=== PATIENT | female | born 1990 | race Caucasian/White ===

== ENCOUNTER 2025-02-03 23:25 | Emergency (ER) | payer OTHER, SELFPAY ==
--- NOTE | ~2025-02-03 | CT_ITS ---
History: Lower back pain PROCEDURE: CT lumbar spine without intravenous contrast. COMPARISON: None TECHNIQUE: Multiple contiguous axial images of the lumbar spine were performed without the administration of int ravenous contrast. DLP: 1402 mGy-cm FINDINGS: Preservation of the normal lordotic curvature of the lumbar spine is identified, possibly muscular in origin. No acute compression fractures are present. No soft tissue abnormality is noted. At the level of L2/L3: Trace left paracentral disc protrusion without significant mass effect on eith er the spinal canal or bilateral neural foramen. No additional significant degenerative disc disease is appreciated. Impression: Preservation of the normal lordotic curvature of the lumbar spine, likely muscular in origin. No acute compression fracture. Trace degenerative disease. Reviewed, dictated and finalized at location A. Impression: Preservation of the normal lordotic curvature of the lumbar spine, likely muscu lar in origin. No acute compression fracture. Trace degenerative disease.
[2025-02-03 23:37] VITALS: BP 149/94; PULSE 89; RESP 16; TEMP 36.4; O2SAT 98
[2025-02-03 23:47] LABS: BEDSIDEPREGUCG Negative (Negative)
[2025-02-03 23:47] LABS: Add Urine Microscopic? NO; Appearance Urine Clear (Clear); Glucose Urine UA Negative (Negative); Leukocyte Esterase Ur Negative LEU/UL (Negative); Nitrate Urine Negative (Negative); Specific Grav Ur 1.016 (1.001-1.035)
--- NOTE | 2025-02-04 00:07 | ECG_ITS ---
Test Date: 2025-02-04 00:32:22 Measurements Intervals [place] Rate: 80 P: 46 NH: 171 QRS: 29 QRSD: 83 T: 33 QT: 381 QTc: 440 Interpretive Statements SINUS RHYTHM No previous ECG available for comparison Electronically Signed On 02-04-2025 14:00:52 CDT by Alexandr Aburto M.D.
--- NOTE | 2025-02-04 00:08 | ED_ITS ---
HPI - Back Pain/Injury General Chief Complaint: Back Pain/Injury Stated Complaint: back pain Time Seen by Provider: 02/03/25 23:41 Source: patient Mode of arrival: ambulatory Limitations: no limitations History of Present Illness HPI Narrative: This is a 35-year-old female that presents to the emergency department for lower back pain. Reports the pain feels like a spasm. She has been taking [id number] anti-inflammatories with little relief. Pain is worse with movement and relieved with rest. She also reports mild dysuria. No recent injuries. She additionally endorses that she has been having some heartburn lately. Denies fevers, vomiting, hematuria. Related Data Allergies Allergy/AdvReac Type Severity Reaction Status Date / Time morphine Allergy Itching Verified 02/03/25 23:39 Review of Systems 2 Review of Systems: All systems reviewed & are unremarkable except as noted in HPI and below PMFSH Past Medical History Medical History (Updated 02/04/25 @ 01:47 by Lizbeth Nathan PA-C) ADHD Social History Social History (Updated 02/04/25 @ 00:09 by Lizbeth Nathan PA-C) Smoking status: Current every day smoker Exam 2 Narrative: GENERAL: Well-appearing, well-nourished, and in no acute distress. HEAD: Normocephalic, atraumatic. EYES: EOMI. CHEST: Clear to auscultation. No respiratory distress. No wheezes rales or rhonchi HEART: Regular rate and rhythm. No murmur heard. Normal peripheral pulses. EXTREMITIES: Normal range of motion. No edema. SKIN: Warm, dry, no rash. NEURO: No focal deficits. Alert and oriented x3. Normal gait PSYCH: Normal mood and affect Course Course Emergency Course: Patient updated on her workup. Resting comfortably Vital Signs Vital signs: Vital Signs Temperature 97.5 F L 02/03/25 23:37 Pulse Rate 89 02/03/25 23:37 Respiratory Rate 16 02/03/25 23:37 Blood Pressure 149/94 H 02/03/25 23:37 Pulse Oximetry 98 02/03/25 23:37 Oxygen Delivery Room Air 02/03/25 23:37 Temperature 97.5 F L 02/03/25 23:37 Pulse Rate 89 02/03/25 23:37 Respiratory Rate 16 02/03/25 23:37 Blood Pressure 149/94 H 02/03/25 23:37 Pulse Oximetry 98 02/03/25 23:37 Oxygen Delivery Room Air 02/03/25 23:37 MDM - Back Pain/Injury MDM Narrative Medical decision making narrative: Patient presents to the ER for low back pain. Ongoing over the last several days. No recent injuries or trauma. She is neurologically intact. Also endorsing some dysuria. Cbc without leukocytosis. Metabolic panel with mild transaminitis. Urine without evidence of infection. test is negative CT lumbar spine is without acute findings. Shows mild degenerative changes L4/5. Patient was updated on her workup and agrees with plan of care. She is to follow up with her provider. She was given warnings to return to the ER Differential Diagnosis Differential diagnosis: Likely lumbar radiculopathy, sciatica, strain of lumbar region, renal colic and other (UTI) Lab Data Attestation: I reviewed the patient's lab results. 02/04/25 00:18 02/04/25 00:18 Labs: Lab Results 02/03/25 02/03/25 02/04/25 Range/Units 23:41 23:44 00:18 WBC 8.2 (4.5-10.0) K/mm3 RBC 4.43 (4.2-5.4) M/mm3 Hgb 11.5 L (12.0-15.0) g/dL Hct 37.1 (37.0-47.0) % MCV 83.7 (80-100) fl MCH 26.0 (26-34) pg MCHC 31.0 L (32-36) g/dl RDW 13.7 (11.5-14.5) % Plt Count 215 (150-375) k/mm3 MPV 12.3 H (7.4-10.4) fl Immature Gran % (Auto) 0.4 (0-0.5) % Neut % (Auto) 57.4 (45.5-73.1) % Lymph % (Auto) 33.4 (18.3-44.2) % [place] % (Auto) 5.5 (2.6-8.5) % Eos % (Auto) 2.6 (0-4.4) % Baso % (Auto) 0.7 (0.2-1.2) % Lymph # (Auto) 2.75 (0.9-3.2) K/mm3 [place] # (Auto) 0.5 (0.1-0.6) K/mm3 Eos # (Auto) 0.2 (0-0.3) K/mm3 Baso # (Auto) 0.1 (0.0-0.1) K/mm3 Abs Immat Gran (auto) 0.03 (0.00-0.031) K/mm3 Absolute Neuts (auto) 4.7 (1.3-6.7) K/mm3 Absolute Nucleated RBC 0.000 (0.0-0.012) K/mm3 Nucleated RBC % 0.0 (0.0-0.2) % Sodium 137 (137-145) mmol/L Potassium 4.0 (3.4-5.0) mmol/L Chloride 106 (98-107) mmol/L Carbon Dioxide 24 (22-30) mmol/L Anion Gap 7 (4-12) mmol/L BUN 11 (7-17) mg/dL Creatinine 0.76 (0.7-1.0) mg/dL Estim Creat Clear Calc 116 ml/min Estimated GFR > 60 (59 - ) Glucose 133 H (65-110) mg/dL Calcium 8.8 (8.4-10.2) mg/dL Total Bilirubin 0.3 (0.2-1.3) mg/dL AST 48 H (14-36) U/L ALT 52 H (6-35) U/L Alkaline Phosphatase 64 (38-126) U/L Total Protein 6.9 (6.3-8.2) g/dL Albumin 4.0 (3.5-5.1) g/dL Urine Color Yellow (Yellow) Urine Appearance Clear (Clear) Urine pH 6.5 (5.0-9.0) Ur Specific [place] 1.016 (1.001-1.035) Urine Protein Negative (Negative) mg/dL Urine Glucose (UA) Negative (Negative) mg/dL Urine Ketones Negative (Negative) mg/dL Ur Blood (Man) Negative (Negative) Urine Nitrate Negative (Negative) Urine Bilirubin Negative (Negative) Urine Urobilinogen 1.0 (<2.0) mg/dL Leukocyte Esterase Rfl Negative (Negative) MONSE/UL POC Urine HCG, Qual Negative (Negative) Imaging Data Radiologist's impression: CT lumbar spine: No acute findings. Mild degenerative changes L4/5. No significant central canal stenosis ECG Data EKG #1: ECG completion date: 02/04/25 EKG Interpretation: normal rate, sinus rhythm, no ST changes and normal QT Critical Care Time Critical Care Time Critical Care Time: No Discharge Plan Discharge Clinical Impression: Degenerative disc disease Qualifiers: Spinal region: lumbar Disc-related pain type: discogenic back pain only Q ualified Code(s): M51.360 - Other intervertebral disc degeneration, lumbar region with discogenic back pain only Patient Disposition: Home Condition: Improved Instructions: Degenerative Disc Disease (ED) Additional Instructions: Return to the ER if you experience weakness, numbness, bowel/bladder incontinence, or any other symptoms that are concerning to you Rest, use ice/heat, take anti-inflammatories (Aleve, Ibuprofen, Naproxen, etc) or Tylenol as needed for pain as well as muscle relaxer (Flexeril) as needed for pain. Muscle relaxers can make you drowsy, do not drive if you take this Follow up with your primary care doctor Patient Language: [place] Prescriptions: New cyclobenzaprine 10 mg tablet 10 mg PO TID PRN (Reason: muscle spasm) Qty: 14 0RF methylprednisolone [Medrol (Rigoberto)] 4 mg tablets,dose pack See Rx Instructions .ROUTE .COMPLEX Qty: 21 0RF Rx Instructions: orally per package directions famotidine [Pepcid] 40 mg tablet 40 mg PO DAILY 30 Days Qty: 30 0RF Follow-up/Referrals: UNKNOWN,DOCTOR [Primary Care Provider] - Stand Alone Forms: Work/School Release IP
[2025-02-04] MEDS: ACETAMINOPHEN 500 MG TABLET 1000 MG PO (00:21)
[2025-02-04] MEDS: KETOROLAC 15 MG/ML VIAL (*BKC) IV PUSH (00:22)
[2025-02-04] MEDS: FAMOTIDINE 20 MG/2 ML VIAL IV PUSH (00:22)
[2025-02-04] MEDS: diazePAM INJ (*CRX) 10 MG/2 ML SYRINGE 5 MG IV PUSH (00:22)
[2025-02-04 00:24] LABS: Hematocrit 37.1 % (37.0-47.0); Hemoglobin 11.5 g/dL (12.0-15.0); Immature Granulocyte Percent A 0.4 % (0-0.5); Lymphocytes Absolute Auto 2.75 K/mm3 (0.9-3.2); Mean Corpuscular HGB Conc 31.0 g/dl (32-36); Mean Corpuscular Hemoglobin 26.0 pg (26-34); Mean Corpuscular Volume 83.7 fl (80-100); Nucleated Red Blood Cells Absolute Auto 0.000 K/mm3 (0.0-0.012); Nucleated Red Blood Cells Perc 0.0 % (0.0-0.2); Platelet Count Result 215 k/mm3 (150-375); Red Blood Count 4.43 M/mm3 (4.2-5.4); White Blood Count 8.2 K/mm3 (4.5-10.0)
[2025-02-04 00:33] LABS: Alanine Aminotransferase 52 U/L (6-35); Albumin Level 4.0 g/dL (3.5-5.1); Alkaline Phosphatase 64 U/L (38-126); Anion Gap 7 mmol/L (4-12); Aspartate Amino Transferase 48 U/L (14-36); Bilirubin,Total 0.3 mg/dL (0.2-1.3); Blood Urea Nitrogen 11 mg/dL (7-17); Calcium 8.8 mg/dL (8.4-10.2); Carbon Dioxide 24 mmol/L (22-30); Chloride 106 mmol/L (98-107); Estimated CRCL calculation 116 ml/min; Estimated Glomerular Filt Rate > 60; Glucose 133 mg/dL (65-110); Potassium 4.0 mmol/L (3.4-5.0); Sodium 137 mmol/L (137-145); Total Protein 6.9 g/dL (6.3-8.2)
[2025-02-04 02:03] VITALS: BP 160/86; PULSE 81; RESP 16; TEMP 36.5; O2SAT 94
== END 2025-02-04 02:05 | disposition home or self-care (01) ==
PROVIDERS: Student in an Organized Health Care Education/Training Program; Emergency Provider Physician Assistant
DX: M51.360 Other intervertebral disc degeneration, lumbar region with discogenic back pain only (principal); F90.9 Attention-deficit hyperactivity disorder, unspecified type
CPT/HCPCS: 36415; 72131; 80053; 81003; 81025; 85025; 93005; 96374; 96375; 99284; A9270; J1885; J3360